=== PATIENT | female | born 1955 | race Two or more races ===

== ENCOUNTER 2019-02-08 06:57 | Day surgery (SDC) | payer OTHER ==
[2019-02-08] MEDS ORDERED: MIDAZOLAM 1 MG/ML 2 ML INJ ×2 (09:27)
[2019-02-08] MEDS ORDERED: FENTAnyl 50 MCG/ML VIAL (09:27)
== END 2019-02-08 13:03 | disposition home or self-care (01) ==
LOC: GIL 06:57
DX: Z12.11 Encounter for screening for malignant neoplasm of colon (principal); D12.2 Benign neoplasm of ascending colon; D12.4 Benign neoplasm of descending colon; K57.30 Diverticulosis of large intestine without perforation or abscess without bleeding; K64.4 Residual hemorrhoidal skin tags; I10 Essential (primary) hypertension
CPT/HCPCS: 45380; 88305